=== PATIENT | male | born 1970 | race Caucasian/White ===

== ENCOUNTER 2017-03-06 13:06 | Emergency (ER) | payer OTHER ==
[2017-03-06 13:21] VITALS: BP 117/82
--- NOTE | 2017-03-06 13:30 | ED Physician Documentation ---
Lower Extremity Injury - HISTORIAN Historian: patient - HPI Stated Complaint: Left knee pain Chief Complaint: Lower Extremity Injury Additional Information: Fell in a hole at work, up to his groin. lid hit against his knee as he fell, small abrasion on knee cap. Is able to bear weight, hurts on medial patella area. Onset: minutes Where: work Severity: mild Context: fall, twist, direct blow Associated Symptoms:: denies: numbness distally, snapping sensation, popping sensation, unable to bear weight Modifying Factors:: pain on movement - ROS CONST: no problems CVS/RESP: none GI/: denies: nausea, vomiting MS/SKIN/LYMPH: none NEURO: denies: headache, head injury - PAST HX Past History: none Allergies/Adverse Reactions: Allergies Allergy/AdvReac Type Severity Reaction Status Date / Time aspirin Allergy Eye Verified 03/06/17 13:22 Swelling Home Medications: Ambulatory Orders Medication Instructions Recorded NK [NK] 03/06/17 - SOCIAL HX Smoking History: chew Alcohol Use: rarely Drug Use: none - FAMILY HX Family History: none - VITAL SIGNS Vital Signs: Vital Signs Temp Pulse Resp BP Pulse Ox 98.6 F 71 18 117/82 97 03/06/17 13:16 03/06/17 13:16 03/06/17 13:16 03/06/17 13:16 03/06/17 13:16 - REVIEWED ASSESSMENTS Nursing Assessment Reviewed: Yes Vitals Reviewed: Yes Lower Extremities Injury Phy - Physical Exam General Appearance: no acute distress, alert Hips: left hip: soft tissue tenderness Legs: bilateral: non-tender Knees: left: pain, soft tissue tenderness Ankle: bilateral: non-tender Foot: bilateral foot: non-tender Ligaments: No: pain on anterior drawer, laxity on anterior drawer, pain on posterior drawer, laxity on posterior drawe Gait: limited by pain Neuro/Vascular/Tendon: no vascular compromise Head/ENT: nml inspection Neck/Back: nml inspection Resp/CVS: no resp. distress Abdomen: non-tender Discharge Clincal Impression: Left knee sprain Qualifiers: Encounter type: initial encounter Involved ligament of knee: unspecified collateral ligament Qualified Code(s): S83.402A - Sprain of unspecified collateral ligament of left knee, initial encounter Contusion of knee, left Qualifiers: Encounter type: initial encounter Qualified Code(s): S80.02XA - Contusion of left knee, initial encounter Referrals: Primary Doctor,No [Primary Care Provider] - 2 Days Home Medications: Ambulatory Orders NK [NK] 03/06/17 Condition: Good Disposition: 01 HOME, SELF-CARE Decision to Admit: NO Date of Decison to Admit: 03/06/17 Decision Time: 13:43
== END 2017-03-06 13:54 | disposition home or self-care (01) ==
LOC: ED 13:06
DX: S83.402A Sprain of unspecified collateral ligament of left knee, initial encounter (principal); S80.02XA Contusion of left knee, initial encounter; X58.XXXA Exposure to other specified factors, initial encounter; Y93.9 Activity, unspecified; Y99.9 Unspecified external cause status
CPT/HCPCS: 99283